=== PATIENT | male | born 1970 | race Caucasian/White ===

== ENCOUNTER → 2016-11-17 | Outpatient (CLI) | payer OTHER ==
--- NOTE | ~2016-11-17 | NM86 ---
[facility] A Service of [facility] & [facility] RADIOLOGY TEXT RESULTS PATIENT: DARYL DIAZ LOCATION: [facility] : 74 UNIT #: [id number] AGE: [address]: Angel Ray MD SEX: M ORDER DR: [id number] [facility] [address] [place], [place] [address] [id number] O MR#: [id number] Acc #: [id number] NAME: DARYL DIAZ : 1970 SEX: M STUDY DATE/TIME: 11/17/2016 7:15 UNIT: [facility] ROOM: STUDY DESCRIPTION: NM Thyroid Img W Uptake Attending Physician: Angel Ray M.D. Referring Physician: Angel Ray M.D. Ordering Physician: Angel Ray M.D. Primary Care Physician: Bernabe Adamson M.D. MEDICAL IMAGING REPORT This report is preliminary unless electronic signature is present EXAM Nuclear medicine thyroid uptake and scan. DATE 11/17/2016 HISTORY Physician's order states toxic diffuse goiter. Patient states history of thyroid goiter for which she has been on medication. The Patient states 45-pound weight loss over the past couple of years, heart palpitation or flutters. Fatigue, mood swings, hot flashes. The patient states abnormal laboratory findings for 5 years. COMPARISON None FINDINGS Following the ingestion of 167.5 mcCi I-123 in capsular form, delayed 24-hour anterior, LEE and INDIAN pinhole images were obtained through the neck. There is normal radiopharmaceutical uptake within both thyroid lobes, the left lobe being very slightly larger than the left. No hot or cold nodules are identified. The calculated 24-hour I-123 uptake is 37.8%, greater than upper limits of normal at this institution (normal range at this institution between 10% to 30%). IMPRESSION 1. Elevated 24-hour I-123 uptake 37.8%. This can be seen in cases of Graves disease. Correlate with clinical symptoms. 2. Normal scintigraphic appearance of the thyroid gland without hot or cold nodularity. [facility] A Service of [facility] & [facility] RADIOLOGY TEXT RESULTS PATIENT: DARYL DIAZ LOCATION: [facility] : 74 UNIT #: [id number] AGE: [address]: Angel Ray MD SEX: M ORDER DR: Dictated by... Christine Malcolm M.D. THIS IS AN ELECTRONICALLY VERIFIED REPORT Christine Malcolm M.D. at 11/17/2016 5:06 PM PATRIC/georges TD: 11/17/2016 10:35 JOB #: [id number] MEDICAL IMAGING REPORT Page 1 of 1 COPY
== END | disposition home or self-care (01) ==
LOC: CNUC 06:30
DX: E05.00 Thyrotoxicosis with diffuse goiter without thyrotoxic crisis or storm (principal)
CPT/HCPCS: 78014; A9516

== ENCOUNTER → 2016-12-09 | Outpatient (CLI) | payer OTHER ==
--- NOTE | ~2016-12-09 | NM78 ---
[facility] A Service of [facility] & [facility] RADIOLOGY TEXT RESULTS PATIENT: DARYL DIAZ LOCATION: [facility] : 74 UNIT #: [id number] AGE: [address]: Angel Ray MD SEX: M ORDER DR: [id number] [facility] [address] [place], [place] [address] [id number] O MR#: [id number] Acc #: [id number] NAME: DARYL DIAZ : 1970 SEX: M STUDY DATE/TIME: 12/09/2016 7:14 UNIT: [facility] ROOM: STUDY DESCRIPTION: VT Radiopharm Tx oral Attending Physician: Angel Ray M.D. Referring Physician: Angel Ray M.D. Ordering Physician: Angel Ray M.D. Primary Care Physician: Bernabe Adamson M.D. MEDICAL IMAGING REPORT This report is preliminary unless electronic signature is present EXAM Iodine-131 therapy INDICATION Hyperthyroidism PROCEDURE Following a discussion of the procedure including potential risks, benefits and recommended precautions the patient wished to proceed. Patient was administered 26.2 mCi of Iodine-131 in a single capsule. IMPRESSION Iodine-131 therapy as above. Dictated by... Drew Raphael M.D. THIS IS AN ELECTRONICALLY VERIFIED REPORT Drew Raphael M.D. at 12/13/2016 7:15 AM CHRISTEL/evie TD: 12/09/2016 12:20 JOB #: [id number] MEDICAL IMAGING REPORT Page 1 of 1 COPY
== END | disposition home or self-care (01) ==
LOC: CNUC 07:02
DX: E05.00 Thyrotoxicosis with diffuse goiter without thyrotoxic crisis or storm (principal)
CPT/HCPCS: 79005; A9517

== ENCOUNTER → 2017-02-04 | Outpatient (CLI) | payer OTHER ==
[2017-02-04 13:33] LABS: THYROID STIMULATING HORMONE 0.46 uIU/ml (0.34-5.60)
[2017-02-04 13:37] LABS: FREE T3 2.6 pg/mL (2.5-3.9)
[2017-02-04 13:39] LABS: FREE THYROXIN (T4) 0.4 ng/dL (0.58-1.64)
== END | disposition home or self-care (01) ==
LOC: CLAB 12:19
PROVIDERS: Internal Medicine Endocrinology, Diabetes & Metabolism
DX: E05.00 Thyrotoxicosis with diffuse goiter without thyrotoxic crisis or storm (principal)
CPT/HCPCS: 36415; 84439; 84443; 84481

== ENCOUNTER → 2017-03-11 | Outpatient (CLI) | payer OTHER ==
[2017-03-11 14:00] LABS: THYROID STIMULATING HORMONE 30.25 uIU/ml (0.34-5.60)
[2017-03-11 14:04] LABS: FREE T3 2.6 pg/mL (2.5-3.9)
[2017-03-11 14:06] LABS: FREE THYROXIN (T4) 0.58 ng/dL (0.58-1.64)
== END | disposition home or self-care (01) ==
LOC: CLAB 12:56
PROVIDERS: Internal Medicine Endocrinology, Diabetes & Metabolism
DX: E89.0 Postprocedural hypothyroidism (principal)
CPT/HCPCS: 36415; 84439; 84443; 84481